=== PATIENT | female | born 1980 | race Caucasian/White ===

== ENCOUNTER 2017-12-03 04:57 | Emergency (ER) | payer OTHER ==
[2017-12-03 05:03] VITALS: BMI 24.3
--- NOTE | 2017-12-03 05:13 | PDOC ---
History of Present Illness - General History Source: Patient Exam Limitations: No Limitations - History of Present Illness Initial Comments: 12/03/17 06:43 Patient is a 37 year old female with no significant past medical history who presents to the ED with complaints of nausea/vomiting that began this morning. Patient reports experiencing sudden onset of nausea and 1 episode of vomiting this morning while at home. She reports experiencing 1 episode of bloody diarrhea this morning. Patient reports experiencing intermittent chest pain that she states is a pressure pain that she states radiates to her shoulder and neck. She reports taking no medication for nausea or pain. Denies Sob, fevers, chills. Denies out of state travelling. Denies constipation , dysuria, hematuria. Denies any other symptoms. Allergies: None Social history: Current smoker. No alcohol. No illicit drugs. Surgical history: None PMD: None <Stiven Courtney - Last Filed: 12/03/17 06:43> <Kenyatta Tiwari - Last Filed: 12/05/17 15:37> - General Chief Complaint: Nausea/Vomiting Stated Complaint: PAIN Time Seen by Provider: 12/03/17 05:10 Past History <Stiven Courtney - Last Filed: 12/03/17 06:43> - Suicide/Smoking/Psychosocial Hx Smoking History: Current every day smoker Information on smoking cessation initiated: No Hx Alcohol Use: No Drug/Substance Use Hx: No <Kenyatta Tiwari - Last Filed: 12/05/17 15:37> - Past Medical History Allergies/Adverse Reactions: Allergies Allergy/AdvReac Type Severity Reaction Status Date / Time No Known Allergies Allergy Verified 12/04/17 06:05 Home Medications: Ambulatory Orders Famotidine [Pepcid] 20 mg PO DAILY #20 tablet 12/04/17 Metoclopramide HCl [Reglan] 10 mg PO TID PRN #20 tablet 12/04/17 Review of Systems - Review of Systems Able to Perform ROS?: Yes Comments:: 12/03/17 06:43 GENERAL/CONSTITUTIONAL: No fever or chills. No weakness. HEAD, EYES, EARS, NOSE AND THROAT: No change in vision. No ear pain or discharge. No sore throat. CARDIOVASCULAR: No chest pain or shortness of breath. RESPIRATORY: No cough, wheezing, or hemoptysis. GASTROINTESTINAL: +Nausea. +Vomiting. +Bloody diarrhea. No constipation. GENITOURINARY: No dysuria, frequency, or change in urination. MUSCULOSKELETAL: No joint or muscle swelling or pain. No neck or back pain. SKIN: No rash NEUROLOGIC: No headache, vertigo, loss of consciousness, or change in strength/ sensation. ENDOCRINE: No increased thirst. No abnormal weight change. HEMATOLOGIC/LYMPHATIC: No anemia, easy bleeding, or history of blood clots. ALLERGIC/IMMUNOLOGIC: No hives or skin allergy. All Other Systems: Reviewed and Negative <Stiven Courtney - Last Filed: 12/03/17 06:43> *Physical Exam - Vital Signs Last Vital Signs Temp Pulse Resp BP Pulse Ox 98.7 F 76 14 155/73 98 12/03/17 05:01 12/03/17 05:01 12/03/17 05:01 12/03/17 05:01 12/03/17 05:01 - Physical Exam Comments: 12/03/17 06:44 GENERAL: Awake, alert, and fully oriented, in no acute distress HEAD: No signs of trauma EYES: PERRLA, EOMI, sclera anicteric, conjunctiva clear ENT: Auricles normal inspection, hearing grossly normal, nares patent, oropharynx clear without exudates. Moist mucosa NECK: Normal ROM, supple, no lymphadenopathy, JVD, or masses LUNGS: Breath sounds equal, clear to auscultation bilaterally. No wheezes, and no crackles HEART: Regular rate and rhythm, normal S1 and S2, no murmurs, rubs or gallops ABDOMEN: +Superpuboc tenderness. No flank pain. Soft, nontender, normoactive bowel sounds. No guarding, no rebound. No masses EXTREMITIES: Normal range of motion, no edema. No clubbing or cyanosis. No cords, erythema, or tenderness NEUROLOGICAL: Cranial nerves II through XII grossly intact. Normal speech, normal gait SKIN: Warm, Dry, normal turgor, no rashes or lesions noted. <Stiven Courtney - Last Filed: 12/03/17 06:43> - Vital Signs Last Vital Signs Temp Pulse Resp BP Pulse Ox 98.7 F 76 14 155/73 98 12/03/17 05:01 12/03/17 05:01 12/03/17 05:01 12/03/17 05:01 12/03/17 05:01 <Kenyatta Tiwari - Last Filed: 12/05/17 15:37> ED Treatment Course - LABORATORY CBC & Chemistry Diagram: 12/03/17 06:23 12/03/17 06:23 - ADDITIONAL ORDERS Additional order review: Laboratory Results 12/03/17 06:23 Urine HCG, Qual Negative - Medications Given in the ED: ED Medications Discontinued Medications Generic Name Dose Route Start Last Admin Trade Name Stephane PRN Reason Stop Dose Admin Famotidine/Sodium Chloride 20 mg in 50 mls @ 100 mls/hr 12/03/17 06:02 06:27 Pepcid 20 Mg Premixed Ivpb - IVPB 12/03/17 06:31 100 mls/hr ONCE ONE Administration Ondansetron HCl 4 mg 12/03/17 06:02 12/03/17 06:27 Zofran Injection IVPB 12/03/17 06:03 4 mg ONCE ONE Administration Sodium Chloride 1,000 ml 12/03/17 05:14 12/03/17 06:27 Normal Saline - IV 12/03/17 05:15 1,000 ml ONCE ONE Administration <Stiven Courtney - Last Filed: 12/03/17 06:43> - LABORATORY CBC & Chemistry Diagram: 12/03/17 06:23 12/03/17 06:23 <Kenyatta Tiwari - Last Filed: 12/05/17 15:37> Medical Decision Making - Medical Decision Making 12/03/17 06:48 Pt comes with gastroenteritis. WBC is elevated and 94% neutrophils 12/03/17 06:49 Pt will be signed out to the day team 12/03/17 06:56 CBC and UA pending. <Kenyatta Tiwari - Last Filed: 12/05/17 15:37> *DC/Admit/Observation/Transfer - Attestations Scribe Attestion: 12/03/17 06:44 Documentation prepared by Stiven Courtney, acting as coroner/medical examiner for Kenyatta Tiwari MD/DO. <Stiven Courtney - Last Filed: 12/03/17 06:43> <Kenyatta Tiwari - Last Filed: 12/05/17 15:37> Diagnosis at time of Disposition: Gastritis - Discharge Dispostion Disposition: HOME Condition at time of disposition: Improved - Referrals Referrals: Tk Johnson MD [Staff Physician] - Hugh Baum MD [Staff Physician] - - Patient Instructions Printed Discharge Instructions: DI for Gastritis Additional Instructions: Activity as tolerated. Stay hydrated. Advance diet as tolerated, avoiding dairy , spicy fatty foods, caffeine and alcohol. Blood tests showed no acute abnormalities, a urine test shows some blood in the urine which should be followed up with a urologist. Do your best to minimize marijuana use and alcohol use. Take Pepcid and Reglan as prescribed. Continue your medications as previously prescribed by your physician. You should follow up with a primary doctor, a GI specialist (consider calling Dr. Johnson), and a urologist (consider calling Dr. Baum) as soon as possible regarding today's emergency department visit. Return to the emergency department for any new or concerning symptoms, particularly persistent or worsening pain, intractable vomiting or bloody vomit , fevers or chills.
[2017-12-03] MEDS ORDERED: SODIUM CHLORIDE 0.9% 500 ML INFUS.BAG IV ONE (05:14)
[2017-12-03] MEDS ORDERED: ONDANSETRON 4 MG/2 ML VIAL IVPB ONE (06:02)
[2017-12-03] MEDS ORDERED: FAMOTIDINE 20 MG/50 ML IVPB 20 MG/50 ML MG IVPB ONE ×2 (06:02→06:46)
[2017-12-03] MEDS ORDERED: ONDANSETRON 4 MG/2 ML VIAL ONE (06:23)
[2017-12-03 06:41] LABS: BASO % 0.2 % (0-2.0); HEMATOCRIT 42.8 % (32.4-45.2); HEMOGLOBIN 14.4 GM/dL (10.7-15.3); MCH 30.5 pg (25.7-33.7); MCHC 33.5 g/dl (32.0-36.0); MEAN PLT VOLUME 9.2 fl (7.5-11.1); MONO % 2.1 % (3.8-10.2); NEUT % 94.7 % (42.8-82.8); PLATELET COUNT 273 K/MM3 (134-434); RDW 12.8 % (11.6-15.6); WHITE BLOOD COUNT 12.5 K/mm3 (4.0-10.0)
[2017-12-03 06:42] LABS: HCG,QUALITATIVE URINE NEGATIVE
[2017-12-03 06:43] LABS: URINE APPEARANCE CLOUDY; URINE BILIRUBIN NEGATIVE (NEGATIVE); URINE BLOOD 2+ (NEGATIVE); URINE COLOR YELLOW; URINE GLUCOSE (UA) 2+ (NEGATIVE); URINE KETONE 1+ (NEGATIVE); URINE LEUK ESTERASE NEGATIVE (NEGATIVE); URINE NITRITE NEGATIVE (NEGATIVE); URINE UROBILINOGEN NEGATIVE mg/dL (0.2-1.0)
[2017-12-03 07:06] LABS: METHADONE, UR NEGATIVE ng/ml (CUTOFF=300); OPIATES, URI NEGATIVE ng/ml (CUTOFF=300); PHENCYCLIDINE,URINE NEGATIVE ng/ml (CUTOFF=25); URINE AMPHETAMINES NEGATIVE ng/ml (CUTOFF=500); URINE BARBITURATES NEGATIVE ng/ml (CUTOFF=200); URINE BENZODIAZEPINES NEGATIVE ng/ml (CUTOFF=200)
[2017-12-03] MEDS ORDERED: SODIUM CHLORIDE 1,000 ML IV ONE ×2 (07:10→08:31)
[2017-12-03 07:12] LABS: COCAINE, UR POSITIVE ng/ml (CUTOFF=300)
[2017-12-03 07:13] LABS: ALBUMIN 4.5 g/dl (3.4-5.0); ALK PHOS 61 U/L (45-117); ANION GAP 11 (8-16); BILIRUBIN,TOTAL 0.8 mg/dL (0.2-1.0); BLOOD UREA NITROGEN 10 mg/dL (7-18); CALCIUM 9.5 mg/dL (8.5-10.1); CHLORIDE 104 mmol/L (98-107); CO2 23 mmol/L (21-32); CREATININE 0.6 mg/dL (0.55-1.02); GLUCOSE,RANDOM 142 mg/dL (74-106); SGPT/ALT 25 U/L (12-78); SODIUM 138 mmol/L (136-145); TOT PROT 8.7 g/dl (6.4-8.2)
[2017-12-03 07:18] LABS: POTASSIUM 4.2 mmol/L (3.5-5.1); SGOT/AST 19 U/L (15-37)
[2017-12-03 07:52] LABS: URINE PROTEIN 2+ (NEGATIVE)
[2017-12-03] MEDS ORDERED: METOCLOPRAMIDE HCL INJECTION 10 MG/2 ML VIAL IVPB ONE (08:18)
[2017-12-03] MEDS ORDERED: ACETAMINOPHEN 1000 MG/100 ML VIAL (NON FORMULARY) IVPB ONE (08:19)
[2017-12-03] MEDS ORDERED: METOCLOPRAMIDE HCL INJECTION 10 MG/2 ML VIAL ONE ×2 (08:21→08:29)
[2017-12-03] MEDS ORDERED: ACETAMINOPHEN INJECTION 100 ML IVPB ONE ×2 (08:21→08:29)
[2017-12-03 08:22] LABS: EPI CELLS MODERATE /HPF (FEW); URINE BACTERIA RARE /hpf (NONE SEEN); URINE MUCUS MANY
--- NOTE | 2017-12-03 10:27 | PDOC ---
*Physical Exam - Vital Signs Last Vital Signs Temp Pulse Resp BP Pulse Ox 98.7 F 76 14 155/73 98 12/03/17 05:01 12/03/17 05:01 12/03/17 05:01 12/03/17 05:01 12/03/17 05:01 - Physical Exam Comments: 12/03/17 10:10 Vital signs stable Well-appearing, ambulating in the emergency department, speaking full sentences , tolerating by mouth Abdomen benign, no further vomiting ED Treatment Course - LABORATORY CBC & Chemistry Diagram: 12/03/17 06:23 12/03/17 06:23 - ADDITIONAL ORDERS Additional order review: Laboratory Results 12/03/17 12/03/17 12/03/17 06:23 06:23 06:23 Sodium Potassium Chloride Carbon Dioxide Anion Gap BUN Creatinine Creat Clearance w eGFR Random Glucose Calcium Total Bilirubin AST ALT Alkaline Phosphatase Total Protein Albumin Lipase 47 L Urine Color Yellow Urine Appearance Cloudy Urine pH 6.0 Ur Specific Carson 1.020 Urine Protein 2+ H Urine Glucose (UA) 2+ H Urine Ketones 1+ H Urine Blood 2+ H Urine Nitrite Negative Urine Bilirubin Negative Urine Urobilinogen Negative Ur Leukocyte Esterase Negative Urine WBC (Auto) 4 Urine RBC (Auto) 58 Ur Epithelial Cells Moderate Urine Bacteria Rare Urine Mucus Many Urine HCG, Qual Negative Opiates Screen Negative Methadone Screen Negative Barbiturate Screen Negative Phencyclidine Screen Negative Ur Amphetamines Screen Negative MDMA (Ecstasy) Screen Negative Benzodiazepines Screen Negative Cocaine Screen Positive U Marijuana (THC) Screen Positive 12/03/17 06:23 Sodium 138 Potassium 4.2 Chloride 104 Carbon Dioxide 23 Anion Gap 11 BUN 10 Creatinine 0.6 Creat Clearance w eGFR > 60 Random Glucose 142 H Calcium 9.5 Total Bilirubin 0.8 AST 19 ALT 25 Alkaline Phosphatase 61 Total Protein 8.7 H Albumin 4.5 Lipase Urine Color Urine Appearance Urine pH Ur Specific Carson Urine Protein Urine Glucose (UA) Urine Ketones Urine Blood Urine Nitrite Urine Bilirubin Urine Urobilinogen Ur Leukocyte Esterase Urine WBC (Auto) Urine RBC (Auto) Ur Epithelial Cells Urine Bacteria Urine Mucus Urine HCG, Qual Opiates Screen Methadone Screen Barbiturate Screen Phencyclidine Screen Ur Amphetamines Screen MDMA (Ecstasy) Screen Benzodiazepines Screen Cocaine Screen U Marijuana (THC) Screen 12/03/17 06:23 RBC 4.70 MCV 91.0 MCHC 33.5 RDW 12.8 MPV 9.2 Neutrophils % 94.7 H Lymphocytes % 3.0 L Monocytes % 2.1 L Eosinophils % 0.0 Basophils % 0.2 - Medications Given in the ED: ED Medications Discontinued Medications Generic Name Dose Route Start Last Admin Trade Name Stephane PRN Reason Stop Dose Admin Acetaminophen 1,000 mg 12/03/17 08:19 12/03/17 08:30 Ofirmev Injection - IVPB 12/03/17 08:20 1,000 mg ONCE ONE Administration Famotidine/Sodium Chloride 20 mg in 50 mls @ 100 mls/hr 12/03/17 06:02 06:27 Pepcid 20 Mg Premixed Ivpb - IVPB 12/03/17 06:31 100 mls/hr ONCE ONE Administration Sodium Chloride 1,000 mls @ 1,000 mls/hr 12/03/17 07:10 12/03/17 07:15 Normal Saline - IV 12/03/17 08:09 1,000 mls/hr ONCE ONE Administration Sodium Chloride 1,000 mls @ 1,000 mls/hr 12/03/17 08:31 12/03/17 08:32 Normal Saline - IV 12/03/17 09:30 1,000 mls/hr ONCE ONE Administration Metoclopramide HCl 10 mg 12/03/17 08:18 12/03/17 08:30 Reglan Injection - IVPB 12/03/17 08:19 10 mg ONCE ONE Administration Ondansetron HCl 4 mg 12/03/17 06:02 12/03/17 06:27 Zofran Injection IVPB 12/03/17 06:03 4 mg ONCE ONE Administration Sodium Chloride 1,000 ml 12/03/17 05:14 12/03/17 06:27 Normal Saline - IV 12/03/17 05:15 1,000 ml ONCE ONE Administration Medical Decision Making - Medical Decision Making 12/03/17 10:10 Received signout on this 37-year-old female with history of polysubstance abuse including cocaine, marijuana, alcohol who presented with an episode of vomiting this morning and some abdominal cramping. Presumed gastroenteritis, but labs were pending and plan at sign out was to reassess and likely discharge after hydration. White count 12.5 with left shift, chemistries otherwise within normal limits including lipase, urine with some blood but no infection. Received 2 L of normal saline and antiemetics with relief of her symptoms. Patient is a daily marijuana smoker, likely contributed into possible gastroparesis and vomiting syndrome, could also be secondary to gastroenteritis given the leukocytosis and left shift. Agrees with discharge plan on antacid, GI follow-up, understands return criteria. *DC/Admit/Observation/Transfer Diagnosis at time of Disposition: Gastritis Qualifiers: Gastritis type: unspecified gastritis Chronicity: acute Gastritis bleeding: without bleeding Qualified Code(s): K29.00 - Acute gastritis without bleeding - Discharge Dispostion Disposition: HOME Condition at time of disposition: Improved - Prescriptions Prescriptions: Famotidine [Pepcid] 20 mg PO DAILY #20 tablet Metoclopramide HCl [Reglan] 10 mg PO TID PRN #20 tablet PRN Reason: Nausea - Referrals Referrals: Tk Johnson MD [Staff Physician] - Hugh Baum MD [Staff Physician] - - Patient Instructions Printed Discharge Instructions: DI for Gastritis Additional Instructions: Activity as tolerated. Stay hydrated. Advance diet as tolerated, avoiding dairy , spicy fatty foods, caffeine and alcohol. Blood tests showed no acute abnormalities, a urine test shows some blood in the urine which should be followed up with a urologist. Do your best to minimize marijuana use and alcohol use. Take Pepcid and Reglan as prescribed. Continue your medications as previously prescribed by your physician. You should follow up with a primary doctor, a GI specialist (consider calling Dr. Johnson), and a urologist (consider calling Dr. Baum) as soon as possible regarding today's emergency department visit. Return to the emergency department for any new or concerning symptoms, particularly persistent or worsening pain, intractable vomiting or bloody vomit , fevers or chills. - Post Discharge Activity
[2017-12-03 11:23] VITALS: TEMP 98.7
== END 2017-12-03 10:45 | disposition home or self-care (01) ==
LOC: JER 04:57
PROC: 3E0337Z Introduction of Electrolytic and Water Balance Substance into Peripheral Vein, Percutaneous Approach (ICD-10-PCS; principal; 2017-12-03)
PROC: 3E033GC Introduction of Other Therapeutic Substance into Peripheral Vein, Percutaneous Approach (ICD-10-PCS; 2017-12-03)
PROC: 3E033NZ Introduction of Analgesics, Hypnotics, Sedatives into Peripheral Vein, Percutaneous Approach (ICD-10-PCS; 2017-12-03)
PROC: 3E033GC Introduction of Other Therapeutic Substance into Peripheral Vein, Percutaneous Approach (ICD-10-PCS; 2017-12-03)
PROC: 3E033GC Introduction of Other Therapeutic Substance into Peripheral Vein, Percutaneous Approach (ICD-10-PCS; 2017-12-03)
DX: K52.89 Other specified noninfective gastroenteritis and colitis (principal); K29.00 Acute gastritis without bleeding; F17.210 Nicotine dependence, cigarettes, uncomplicated; F12.10 Cannabis abuse, uncomplicated
CPT/HCPCS: 36415; 80053; 80307; 81003; 81015; 83690; 84703; 85025; 96361; 96365; 96375; 99284-25

== ENCOUNTER 2017-12-04 05:54 | Emergency (ER) | payer OTHER ==
[2017-12-04 06:05] VITALS: BP 149/90; PULSE 66; TEMP 98.4; BMI 24.3
--- NOTE | 2017-12-04 06:55 | PDOC ---
History of Present Illness - General Chief Complaint: Pain Stated Complaint: NAUSEA/VOMITING Time Seen by Provider: 12/04/17 06:54 History Source: Patient - History of Present Illness Initial Comments: 12/04/17 07:31 Patient is a 37 y.o. female who presents to the ED today c/o acute onset of diffuse cramping, non-radiating abdominal pain with nausea but no associated vomiting. Patient denies any diarrhea/constipation, dysuria/hematuria and notes she is tolerating PO intake - last meal was yesterday after her discharge from our facility at which time she was being evaluated for the same complaint. Patient's last BM was yesterday afternoon and was loose stool. Patient states her LMP was 2 weeks previous and she is not currently sexually active. Patient denies chest pain, shortness of breath, fevers/chills. NKDA Surgical: Social: 1 cigarette daily; 3-4 alcoholic drinks daily; daily marijuana and cocaine use Past History - Past Medical History Allergies/Adverse Reactions: Allergies Allergy/AdvReac Type Severity Reaction Status Date / Time No Known Allergies Allergy Verified 12/04/17 06:05 Home Medications: Ambulatory Orders Famotidine [Pepcid] 20 mg PO DAILY #20 tablet 12/04/17 Metoclopramide HCl [Reglan] 10 mg PO TID PRN #20 tablet 12/04/17 COPD: No - Immunization History Immunization Up to Date: No - Suicide/Smoking/Psychosocial Hx Smoking History: Current every day smoker Have you smoked in the past 12 months: Yes Number of Cigarettes Smoked Daily: 20 Information on smoking cessation initiated: No Hx Alcohol Use: No Drug/Substance Use Hx: (denies) Review of Systems - Review of Systems Constitutional: No: Chills, Fever HEENTM: No: Double Vision Respiratory: No: Cough, Shortness of Breath Cardiac (ROS): No: Chest Pain ABD/GI: Yes: Nausea, Abdominal cramping. No: Constipated, Diarrhea, Vomiting : No: Burning, Dysuria *Physical Exam - Vital Signs Last Vital Signs Temp Pulse Resp BP Pulse Ox 98.4 F 66 18 149/90 96 12/04/17 06:03 12/04/17 06:03 12/04/17 06:03 12/04/17 06:03 12/04/17 06:03 - Physical Exam General Appearance: Yes: Nourished, Appropriately Dressed HEENT: positive: EOMI, CHANDANA Neck: positive: Trachea midline, Supple Respiratory/Chest: positive: Lungs Clear, Normal Breath Sounds Cardiovascular: positive: S1, S2 Gastrointestinal/Abdominal: positive: Normal Bowel Sounds, Soft ED Treatment Course - LABORATORY CBC & Chemistry Diagram: 12/04/17 07:45 12/04/17 07:45 Medical Decision Making - Medical Decision Making 12/04/17 07:40 Patient is a 37 y.o. female who presents with non-radiating diffuse cramping abdominal pain. Patient has a self-admitted h/o daily marijuana use and was evaluated at our facility yesterday for a similar complaint with symptomatic resolution following IV NS + Famotadine and Reglan. Patient is non-toxic appearing, and abdomen is soft - low clinical suspicion mesenteric ischemia, SBO as well as acute pancreatitis (Lipase 47). Clinical suspicion for gastritis 2/2 to marijuana use however will do full evaluation for abdominal pain including labs, UA, as well as pelvic exam. Pelvic exam shows no CMT, non-palpable adenxa. G/C sent as patient uncertain of STI infection. Patient eloped prior to full evaluation. *DC/Admit/Observation/Transfer Diagnosis at time of Disposition: Eloped - Discharge Dispostion Disposition: HOME Condition at time of disposition: Fair Admit: No - Prescriptions Prescriptions: Famotidine [Pepcid] 20 mg PO DAILY #20 tablet Metoclopramide HCl [Reglan] 10 mg PO TID PRN #20 tablet PRN Reason: Nausea - Referrals - Patient Instructions - Post Discharge Activity
[2017-12-04] MEDS ORDERED: SODIUM CHLORIDE 0.9% 1000 ML INFUS.BAG IV ONE (07:09)
[2017-12-04] MEDS ORDERED: FAMOTIDINE IV 20 MG/12 ML VIAL IVPUSH ONE (07:10)
[2017-12-04] MEDS ORDERED: ONDANSETRON 4 MG/2 ML VIAL IVPUSH ONE (07:11)
[2017-12-04] MEDS ORDERED: METOCLOPRAMIDE HCL INJECTION 10 MG/2 ML VIAL IVPUSH ONE (07:22)
[2017-12-04] MEDS ORDERED: METOCLOPRAMIDE HCL INJECTION 10 MG/2 ML VIAL ONE (07:31)
[2017-12-04] MEDS ORDERED: FAMOTIDINE 20 MG/50 ML IVPB 20 MG/50 ML MG IVPB ONE (07:31)
--- NOTE | 2017-12-04 07:51 | PDOC ---
Attending Attestation - HPI HPI: 12/04/17 10:07 The patient is a 37 year old female with a significant PMH of asthma and polysubstance abuse including cocaine, alcohol, and marijuana who presents to the emergency department with abdominal pain and nausea beginning approximately 3 hours ago. The patient was seen here in the ED yesterday for a similar complaint and was discharged with Pepcid and Reglan. She returns today with diffuse, cramping abdominal pain with associated nausea but no vomiting. She reports she has been tolerating PO as of last night. She denies vomiting, diarrhea, or constipation. She denies any urinary complaints. Allergies: NKA - Physicial Exam PE: 12/04/17 10:07 GENERAL: Awake, alert, and fully oriented, in no acute distress. Well appearing HEAD: No signs of trauma EYES: PERRLA, EOMI, sclera anicteric, conjunctiva clear ENT: Auricles normal inspection, hearing grossly normal, nares patent, oropharynx clear without exudates. Moist mucosa NECK: Normal ROM, supple, no lymphadenopathy, JVD, or masses LUNGS: Breath sounds equal, clear to auscultation bilaterally. No wheezes, and no crackles HEART: Regular rate and rhythm, normal S1 and S2, no murmurs, rubs or gallops ABDOMEN: Soft, nontender, normoactive bowel sounds. No guarding, no rebound. No masses EXTREMITIES: Normal range of motion, no edema. No clubbing or cyanosis. No cords , erythema, or tenderness BACK: No midline spinal tenderness in cervical/thoracic/lumbar region NEUROLOGICAL: Normal speech, cranial nerves intact, negative pronator drift, 5/ 5 strength in all 4 extremities, normal sensation to light touch in all 4 extremities, normal cerebellar exam, normal gait, normal reflexes and tone SKIN: Warm, Dry, normal turgor, no rashes or lesions noted. <Oskar Becerra - Last Filed: 12/04/17 10:07> - Resident Resident Name: Celia Valdez - ED Attending Attestation I have performed the following: I have examined & evaluated the patient, The case was reviewed & discussed with the resident, I agree w/resident's findings & plan, Exceptions are as noted - Medical Decision Making 12/04/17 07:48 37yo F PSA (daily cocaine, marijuana) presents to the ED for the second time in days with abd cramping and nausea. Vitals unremarkable. Exam with no abd ttp. Pt thought to have gastroenteritis vs gastropareisis yesterday, requests reglan for symptoms today as it worked for her yesterday. Will provide symptomatic control and reassess abd exam. 12/04/17 09:15 Pt seen ambulating in ED in NAD. On my re-eval, pt continues to have benign abd exam. She reports her sxs are much improved. Labs thusfar unremarkable, UA pending. 12/04/17 09:45 I was informed by nurse that patient has eloped. We attempted to call patient at documented number under demographics ([phone]) with no answer. <Angi Delacruz - Last Filed: 12/04/17 10:21> Discharge Disposition <Oskar Becerra - Last Filed: 12/04/17 10:07> <Angi Delacruz - Last Filed: 12/04/17 10:21> - Diagnosis Eloped - Discharge Dispostion Disposition: ELOPED
[2017-12-04 08:13] LABS: BASO % 0.3 % (0-2.0); EOS % 0.2 % (0-4.5); HEMATOCRIT 44.4 % (32.4-45.2); HEMOGLOBIN 14.5 GM/dL (10.7-15.3); LYMPH % 8.9 % (8-40); MCH 29.4 pg (25.7-33.7); MCHC 32.6 g/dl (32.0-36.0); MEAN PLT VOLUME 8.9 fl (7.5-11.1); MONO % 6.3 % (3.8-10.2); NEUT % 84.3 % (42.8-82.8); PLATELET COUNT 273 K/MM3 (134-434); RBC 4.94 M/mm3 (3.60-5.2); RDW 13.1 % (11.6-15.6); WHITE BLOOD COUNT 11.2 K/mm3 (4.0-10.0)
[2017-12-04] MEDS ORDERED: ACETAMINOPHEN 1000 MG/100 ML VIAL (NON FORMULARY) IVPB ONE (08:17)
[2017-12-04] MEDS ORDERED: ACETAMINOPHEN INJECTION 100 ML IVPB ONE (08:19)
[2017-12-04 08:34] LABS: ALBUMIN 4.6 g/dl (3.4-5.0); ALK PHOS 58 U/L (45-117); ANION GAP 6 (8-16); BILIRUBIN,TOTAL 0.8 mg/dL (0.2-1.0); BLOOD UREA NITROGEN 13 mg/dL (7-18); CALCIUM 9.2 mg/dL (8.5-10.1); CHLORIDE 107 mmol/L (98-107); CO2 25 mmol/L (21-32); CREATININE 0.7 mg/dL (0.55-1.02); GLUCOSE,RANDOM 105 mg/dL (74-106); SGPT/ALT 26 U/L (12-78); SODIUM 138 mmol/L (136-145); TOT PROT 8.2 g/dl (6.4-8.2)
[2017-12-04 09:23] LABS: MAGNESIUM 2.2 mg/dL (1.8-2.4); POTASSIUM 3.6 mmol/L (3.5-5.1); SGOT/AST 26 U/L (15-37)
--- NOTE | 2017-12-06 07:55 | PDOC ---
Patient Follow-up (Call Back) - Post ED Follow - Up Disposition at time of original discharge: HOME Reason for Call Back: Abnwl. Microbiology (Left message for patient to call back regarding positive results)
== END 2017-12-04 09:42 | disposition home or self-care (01) ==
LOC: JER 05:54
PROC: 3E033NZ Introduction of Analgesics, Hypnotics, Sedatives into Peripheral Vein, Percutaneous Approach (ICD-10-PCS; principal; 2017-12-04)
PROC: 3E033GC Introduction of Other Therapeutic Substance into Peripheral Vein, Percutaneous Approach (ICD-10-PCS; 2017-12-04)
PROC: 3E033GC Introduction of Other Therapeutic Substance into Peripheral Vein, Percutaneous Approach (ICD-10-PCS; 2017-12-04)
DX: R10.84 Generalized abdominal pain (principal)
CPT/HCPCS: 36415; 80053; 83735; 84703; 85025; 87110; 96374; 96375; 99283-25

== ENCOUNTER 2018-08-07 17:31 | Emergency (ER) | payer OTHER ==
--- NOTE | 2018-08-07 17:59 | PDOC ---
Rapid Medical Evaluation Time Seen by Provider: 08/07/18 17:57 Medical Evaluation: Allergies Allergy/AdvReac Type Severity Reaction Status Date / Time No Known Allergies Allergy Verified 12/04/17 06:05 08/07/18 17:57 I have performed a brief in-person evaluation of this patient. The patient presents with a chief complaint of: pain to the right lateral thigh for a few weeks, missed work today. pt has bite kemp to the right knee as well , noticed this am. Pertinent physical exam findings: ttp right thigh, lateral thigh no bony tenderness. I have ordered the following:none The patient will proceed to the ED for further evaluation.
[2018-08-07 18:06] VITALS: BP 114/74; PULSE 65; TEMP 98.4; BMI 25.0
--- NOTE | 2018-08-07 18:41 | PDOC ---
History of Present Illness - General Chief Complaint: Pain Stated Complaint: RT LEG PAIN Time Seen by Provider: 08/07/18 17:57 - History of Present Illness Initial Comments: 37-year-old female without any significant past medical history presents for evaluation of right thigh pain 7 days. She also noticed some bite kemp around her knee in the lateral aspect of her right thigh. She has mild back pain as well. 08/07/18 18:36 Past History - Past Medical History Allergies/Adverse Reactions: Allergies Allergy/AdvReac Type Severity Reaction Status Date / Time No Known Allergies Allergy Verified 08/07/18 18:00 Home Medications: Ambulatory Orders Cyclobenzaprine HCl [Flexeril 10 mg] 10 mg PO HS PRN #10 tablet 08/07/18 Ibuprofen [Motrin -] 800 mg PO QID 08/07/18 COPD: No CHF: No DVT: No - Immunization History Immunization Up to Date: No - Suicide/Smoking/Psychosocial Hx Smoking History: Current every day smoker Have you smoked in the past 12 months: Yes Number of Cigarettes Smoked Daily: 1 Information on smoking cessation initiated: Yes 'Breaking Loose' booklet given: 08/07/18 Hx Alcohol Use: No Drug/Substance Use Hx: No Substance Use Type: None Review of Systems - Review of Systems Musculoskeletal: Yes: See HPI, Back Pain, Muscle Pain All Other Systems: Reviewed and Negative *Physical Exam - Vital Signs Last Vital Signs Temp Pulse Resp BP Pulse Ox 98.4 F 65 16 114/74 98 08/07/18 17:58 08/07/18 17:58 08/07/18 17:58 08/07/18 17:58 08/07/18 17:58 - Physical Exam Comments: Lumbar spine skin color and temperature are normal range of motion is slightly decreased. There is mild to moderate bilateral lumbar muscle spasm and tenderness. 5 out of 5 strength in bilateral lower extremities. Mildly positive femoral nerve stretch test. Thighs and calves are soft and nontender skin color and temperature are normal there is no gross sensorimotor deficits patient neurovascular intact. There are 2 groups of 3 vesicle kemp on the anterior aspect the knee and the same about the lateral aspect of the right thigh. 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 08/07/18 18:38 *DC/Admit/Observation/Transfer Diagnosis at time of Disposition: Bug bites, Lumbar radiculopathy - Discharge Dispostion Disposition: HOME Condition at time of disposition: Stable Decision to Admit order: No - Prescriptions Prescriptions: Cyclobenzaprine HCl [Flexeril 10 mg] 10 mg PO HS PRN #10 tablet PRN Reason: Muscle Spasms - Referrals Referrals: ON STAFF,NOT [Primary Care Provider] - Sean Sebastian MD [Staff Physician] - - Patient Instructions Printed Discharge Instructions: DI for Bed Bug Bites, Lumbar Radiculopathy, DI for Lumbar Radiculopathy Additional Instructions: If you're taking Motrin 800 mg at home from a prior prescription it is only 3 times a day with food. Do not exceed that dose. It is 1 tablet 3 times a day with food and should discontinue the medication if it bothers her stomach. I've also prescribed he will muscle relaxer that will make you sleepy its one tablet before bedtime. You have localized bug bites to the right knee and thigh. That can be treated with localized wound care and avoidance of bug bites. Bug bites from what we talked about most likely occurred in the group home. He may return to work light duty as we discussed. Please follow-up with spine surgery in 1-2 days for further evaluation and treatment of your back and leg pain and your primary care physician for further evaluation and treatment of the bug bites. You do not require any medication for the bug bites. There is no indication of infection. - Post Discharge Activity Forms/Work/School Notes: Back to Work
== END 2018-08-07 18:44 | disposition home or self-care (01) ==
LOC: JERFT 17:31
DX: M54.16 Radiculopathy, lumbar region (principal); S81.051A Open bite, right knee, initial encounter; Y92.9 Unspecified place or not applicable
CPT/HCPCS: 99281-25